=== PATIENT | female | born 1975 | race African-American/Black ===

== ENCOUNTER 2019-10-12 18:46 | Emergency (ER) | payer OTHER ==
[2019-10-12 18:58] VITALS: BP 155/89; PULSE 84; TEMP 98.8; BMI 30.9
[2019-10-12] MEDS ORDERED: ALBUTEROL SO4 0.083% IH SOL 2.5 MG/3 ML VIAL.NEB. NEB ONE (18:59)
--- NOTE | 2019-10-12 19:00 | PDOC ---
Rapid Medical Evaluation Chief Complaint: Lightheaded Time Seen by Provider: 10/12/19 18:56 Medical Evaluation: Allergies Allergy/AdvReac Type Severity Reaction Status Date / Time No Known Allergies Allergy Verified 12/09/14 04:26 10/12/19 18:57 I have performed a brief in-person evaluation of this patient. The patient presents with a chief complaint of:+ dizziness with cold symptoms x 3-4 days with now cough Pertinent physical exam findings: lungs clear with some tightness bilaterally I have ordered the following: Albuterol NEb The patient will proceed to the ED for further evaluation. 10/12/19 18:58 Discharge Disposition - Diagnosis URI (upper respiratory infection) Qualifiers: URI type: unspecified URI Qualified Code(s): J06.9 - Acute upper respiratory infection, unspecified - Discharge Dispostion Condition at time of disposition: Stable - Referrals - Patient Instructions - Post Discharge Activity
--- NOTE | 2019-10-12 20:51 | PDOC ---
History of Present Illness - General Chief Complaint: Lightheaded Stated Complaint: LIGHTHEADED Time Seen by Provider: 10/12/19 18:56 History Source: Patient - History of Present Illness Initial Comments: 10/12/19 20:39 44 year old female c/o nasal congestion, cough and dizziness x 4 days. + nausea patient right pelvic abdominal pain worse with coughing. denies fever/ chills, vomiting, LMP: 09/15/2019 PMHX: hypertension PSHX; none 10/12/19 20:56 10/13/19 00:05 Past History - Past Medical History Allergies/Adverse Reactions: Allergies Allergy/AdvReac Type Severity Reaction Status Date / Time No Known Allergies Allergy Verified 12/09/14 04:26 Home Medications: Ambulatory Orders Ibuprofen [Motrin -] 600 mg PO Q6H #30 tablet 12/09/14 2/Iron/Folic Acid/Om3 [Complete Adri Dha] 1 each PO DAILY #30 combo..pkg 10/13/19 COPD: No Diabetes: No HTN: Yes Hypercholesterolemia: No - Immunization History Immunization Up to Date: No - Psycho Social/Smoking Cessation Hx Smoking History: Never smoked Have you smoked in the past 12 months: No Information on smoking cessation initiated: No Hx Alcohol Use: No Drug/Substance Use Hx: No Review of Systems - Review of Systems Able to Perform ROS?: Yes Is the patient limited Israeli proficient: No Constitutional: No: Symptoms Reported, See HPI, Chills, Diaphoresis, Fever, Loss of Appetite, Malaise, Night Sweats, Weakness, Weight Stable, Unintentional Wgt. Loss, Unexplained wgt Loss, Other HEENTM: Yes: Nose Congestion. No: Ear Pain, Throat Pain Respiratory: Yes: Cough *Physical Exam - Vital Signs Last Vital Signs Temp Pulse Resp BP Pulse Ox 98.8 F 84 18 155/89 99 10/12/19 18:55 10/12/19 18:55 10/12/19 18:55 10/12/19 18:55 10/12/19 18:55 - Physical Exam General Appearance: Yes: Appropriately Dressed HEENT: positive: Normal ENT Inspection, Other (+ osei chadwick pike) Respiratory/Chest: positive: Lungs Clear, Normal Breath Sounds Cardiovascular: positive: Regular Rhythm, Regular Rate Extremity: positive: Normal Capillary Refill, Normal Inspection Integumentary: positive: Normal Color, Dry, Warm Neurologic: positive: Fully Oriented, Alert, Normal Mood/Affect Heart Score/ECG Review - ECG Intrepretation Rhythm: Regular Rhythm Comment:: 10/12/19 21:03 NSR: 75 bpm ED Treatment Course - LABORATORY CBC & Chemistry Diagram: 10/12/19 22:15 Medical Decision Making - Medical Decision Making 10/12/19 20:56 vertigo; + test P : ua urine CBC beta type and screen TVUS 10/13/19 00:05 10/13/19 00:31 Uterus measures 13.4centimeters in length. There is a single live IUP with estimated gestational age of 6weeks and 4days. There is a normal heart rate of 117beats per minute. There is no subchorionic bleed. 1.6 and a calcified anterior fundal subserosal fibroid is noted as well as a 2.5 cm anterior uterine body calcified fibroid and a 3.1 cm right intramural uterine fibroid. The ovaries are not visualized. There is no significant free fluid. Discharge - Discharge Information Problems reviewed: Yes Clinical Impression/Diagnosis: Positive blood test URI (upper respiratory infection) Qualifiers: URI type: unspecified URI Qualified Code(s): J06.9 - Acute upper respiratory infection, unspecified Condition: Stable - Additional Discharge Information Prescriptions: 2/Iron/Folic Acid/Om3 [Complete Dha] 1 each PO DAILY #30 combo..pkg - Follow up/Referral Referrals: Tres Barron [Primary Care Provider] - - Patient Discharge Instructions Patient Printed Discharge Instructions: Common Discomforts and Bodily Changes During Additional Instructions: Drink plenty of fluids. It is important that you follow-up with the [facility] as soon as possible. Start taking vitamins every day. Return to the ER if you are soaking 2 pads per hour, severe abdominal pain, or worsening symptoms. - Post Discharge Activity Work/Back to School Note: Back to Work
[2019-10-12] MEDS ORDERED: MECLIZINE HCL 25 MG TABLET (FP) PO ONE (20:52)
[2019-10-12 21:17] LABS: HCG,QUALITATIVE URINE Positive
[2019-10-12] MEDS ORDERED: SODIUM CHLORIDE 1,000 ML IV STA (21:45)
[2019-10-12] MEDS ORDERED: MECLIZINE HCL 25 MG TABLET (FP) ONE (22:19)
[2019-10-12 22:21] LABS: BASO % 1.4 % (0-2.0); EOS % 2.3 % (0-4.5); HEMATOCRIT 35.9 % (32.4-45.2); LYMPH % 33.2 % (8-40); MCH 24.6 pg (25.7-33.7); MCHC 33.5 g/dl (32.0-36.0); MEAN CELL VOLUME 73.5 fl (80-96); MONO % 8.4 % (3.8-10.2); NEUT % 54.7 % (42.8-82.8); PLATELET COUNT 345 K/MM3 (134-434); RBC 4.88 M/mm3 (3.60-5.2); RDW 17.5 % (11.6-15.6); WHITE BLOOD COUNT 9.4 K/mm3 (4.0-10.0)
[2019-10-12 22:45] LABS: PH,URINE 8.5 (5.0-8.0); URINE APPEARANCE CLEAR; URINE BILIRUBIN NEGATIVE (NEGATIVE); URINE COLOR YELLOW; URINE GLUCOSE (UA) NEGATIVE (NEGATIVE); URINE KETONE NEGATIVE (NEGATIVE); URINE LEUK ESTERASE NEGATIVE (NEGATIVE); URINE NITRITE NEGATIVE (NEGATIVE); URINE PROTEIN NEGATIVE (NEGATIVE); URINE UROBILINOGEN 0.2 mg/dL (0.2-1.0)
--- NOTE | 2019-10-13 10:36 | EKG ---
Test Reason : Blood Pressure : / mmHG Vent. Rate : 075 BPM Atrial Rate : 075 BPM P-R Int : 138 ms QRS Dur : 084 ms QT Int : 400 ms P-R-T Axes : 047 043 036 degrees QTc Int : 446 ms NORMAL SINUS RHYTHM NORMAL ECG Confirmed by MD HENNA, VIKAS ([id number]) on 10/13/2019 10:36:36 AM Referred By: Confirmed By:VIKAS AGUILLON MD
== END 2019-10-13 00:51 | disposition home or self-care (01) ==
LOC: JER 18:46
PROC: 3E0337Z Introduction of Electrolytic and Water Balance Substance into Peripheral Vein, Percutaneous Approach (ICD-10-PCS; principal; 2019-10-12)
DX: O26.891 Other specified pregnancy related conditions, first trimester (principal); J06.9 Acute upper respiratory infection, unspecified; O34.11 Maternal care for benign tumor of corpus uteri, first trimester; D25.9 Leiomyoma of uterus, unspecified; Z3A.01 Less than 8 weeks gestation of pregnancy; I10 Essential (primary) hypertension
CPT/HCPCS: 36415; 76817-TC; 81003; 84702; 84703; 85025; 86850; 86900; 86901; 93005; 93010; 96360; 99284-25; J7030